=== PATIENT | female | born 1980 | race Caucasian/White ===

== ENCOUNTER 2019-09-24 08:53 | Outpatient (CLI) | payer OTHER, SELFPAY ==
--- NOTE | 2019-09-24 09:06 | US_ITS ---
WS: [id number] Left breast ultrasound, 09/24/2019 Clinical Data: LT BREAST NODULE Comparison: Left breast ultrasound, 08/01/2017. Findings: There is a well bordered smooth subcutaneous nodule 1 cm from the nipple in the upper outer quadrant of the left breast. There are no internal echoes. It measures 0.28 x 0.44 x 0.48 cm. This nodule has not changed in size or configuration. US/US breast LT limited* [id number] Impression: 1. Smooth nodule upper outer quadrant of the left breast unchanged. 2. Most likely this represents a sebaceous cyst or simple cyst. 3. Recommend routine clinical follow-up. BIRADS: 2-Benign FOLLOW UP: See Report
--- NOTE | 2019-09-24 09:06 | MM_ITS ---
WS: [id number] Bilateral diagnostic digital mammogram, 09/24/2019 Clinical Data: LT BREAST NODULE Comparison: 08/01/2017. Findings: The breasts show heterogeneous density. There is a marker at the upper outer quadrant of the left yohan ast. There is a 0.5 cm well bordered nodule adjacent to the marker. The nodule has no spiculations or calcifications. The right breast is normal. No secondary signs of carcinoma seen. MM/[place] [id number] Impression: 1. Unchanged nodule in upper outer quadrant left breast. 2. Recommend ultrasound BIRADS: 2-Benign FOLLOW UP: See Report The CAD receiving checker was used.
== END 2019-09-24 08:54 | disposition home or self-care (01) ==
LOC: RADSHAW 08:59
PROVIDERS: PCP Nurse Practitioner Family; Visit Provider Nurse Practitioner Family
DX: N63.21 Unspecified lump in the left breast, upper outer quadrant (principal)
CPT/HCPCS: 76642; 77066

== ENCOUNTER 2021-10-31 13:11 | Outpatient (CLI) | payer OTHER, SELFPAY ==
--- NOTE | 2021-10-31 13:17 | MM_ITS ---
WS: [id number] BILATERAL 3D TOMOSYNTHESIS DIGITAL SCREENING MAMMOGRAPHY WITH CAD CLINICAL INFORMATION: SCREENING HISTORY: Screening mammogram. No current complaints. COMPARISON: September 24, 2019 TECHNIQUE: Bilateral CC and MLO views. FINDINGS: The breasts are composed of heterogeneous fibroglandular density tissue, which can limit the detectio n of small underlying mass lesions. No suspicious mass, asymmetry, calcifications, or architectural d istortion. No evidence of malignancy. MM/[place] [id number] IMPRESSION: BI-RADS: 1-Negative FOLLOW UP: 1 Year Follow-up Recommend return to annual screening mammography.
== END 2021-10-31 13:12 | disposition home or self-care (01) ==
PROVIDERS: PCP Nurse Practitioner Family; Visit Provider Nurse Practitioner Family
DX: Z12.31 Encounter for screening mammogram for malignant neoplasm of breast (principal)
CPT/HCPCS: 77063; 77067

== ENCOUNTER 2024-01-08 09:06 | Outpatient (CLI) | payer OTHER, SELFPAY ==
--- NOTE | 2024-01-08 09:14 | MM_ITS ---
WS: [id number] BILATERAL 3D TOMOSYNTHESIS DIGITAL SCREENING MAMMOGRAM WITH CAD CLINICAL INFORMATION: SCREENING HISTORY: Screening mammogram. No current complaints. COMPARISON: 2021 TECHNIQUE: Bilateral CC and MLO. FINDINGS: The breast are composed of extremely dense tissue, which can limit the detection of small underlying mass lesions. No suspicious focal mass, asymmetry, calcifications, or architectural distortion. No ev idence of malignancy. MM/MM scr tomosynthesis [id number] IMPRESSION: DENSITY: The breasts are heterogeneously dense, which may obscure small masses. BI-RADS: 1 - Negative FOLLOW UP: 1 Year Follow-up Recommend return to annual screening mammography.
== END 2024-01-08 09:07 | disposition home or self-care (01) ==
LOC: RAD 09:08
PROVIDERS: PCP Nurse Practitioner Family; Visit Provider Nurse Practitioner Family
DX: Z12.31 Encounter for screening mammogram for malignant neoplasm of breast (principal); R92.333 Mammographic heterogeneous density, bilateral breasts
CPT/HCPCS: 77063; 77067